=== PATIENT | male | born 1945 | race Caucasian/White ===

== ENCOUNTER 2017-02-25 22:39 | Inpatient (IN) | payer OTHER ==
[~2017-02-25] VITALS: Ht 175.3 cm; Wt 53.5 kg
--- NOTE | 2017-02-25 23:02 | EMERGENCY ROOM VISIT NOTE ---
History Report prepared by Dariaibe: Connor Darby Under the Supervision of: Dr. Edward Dean D.O. First contact with patient: 22:49 Chief Complaint: UNABLE TO VOID Stated Complaint: UNABLE TO VOID / FR [facility] Nursing Triage Summary: Pt arrives to ER via ALS from [facility]. Pt had myers cather in place until this afternoon. Pt has been unable to void. HS attempted to straight cath patient, unsuccessful, got blood clots. Pt sent here for further evaluation. Pt was bladder scanned for 614 ml in ER. History of Present Illness The patient is a 71 year old male who presents to the Emergency Room with complaints of constant urinary retention that started today. The patient resides at [facility], where he had a Myers catheter removed. He has been unable to void since the Myers was removed. They were unable to establish a straight cath at [facility] and they noticed clots. He has a very strong urge to urinate but cannot. Bladder scan upon arrival to the ED revealed 614 mls of fluid per nursing staff. Source of History: patient, nursing staff Onset: today Position: other (urinary) Quality: other (retention) Timing: constant Associated Symptoms: + urinary symptoms (blood clots) Review of Systems See HPI for pertinent positives and negatives. A total of ten systems were reviewed and were otherwise negative. Past Medical & Surgical Medical Problems: (1) HLD (hyperlipidemia) Family History Patient reports no known family medical history. Social History Smoking Status: Current Every Day Smoker Housing Status: other ([facility]) Occupation Status: retired Current/Historical Medications Scheduled Aspirin (Aspirin Chewable), 162 MG PO QAM Atorvastatin (Lipitor), 80 MG PO DAILY Bisacodyl (Bisacodyl), 10 MG RI DAILY/PRN Clopidogrel (Plavix), 75 MG PO QAM Lidocaine HCl (Lidocaine), 1 APPLN TD PRN Magnesium Hydroxide (Milk Of Magnesia), 30 ML PO DAILY/PRN Scheduled PRN Acetaminophen (Tylenol), 500 MG PO Q4H PRN for MILD PAIN #1-3 OR TEMP >101F Docusate Sodium (Docusate Sodium), 100 MG PO BID PRN for Constipation Polyethylene Glycol 3350 (Miralax), 17 GM PO DAILY PRN for DAILY/PRN Allergies Coded Allergies: No Known Allergies (Unverified , 4/30/17) Physical Exam Vital Signs Date Time Temp Pulse Resp B/P Pulse Ox O2 Delivery O2 Flow Rate FiO2 02/26/17 02:09 120 02/26/17 01:59 151/118 02/26/17 01:39 131 16 86 02/26/17 01:30 140/97 02/26/17 01:09 130 94 02/26/17 01:00 135/105 02/26/17 00:39 146 87 02/26/17 00:30 140 20 155/86 95 Room Air 02/26/17 00:30 155/86 02/26/17 00:21 166/108 02/26/17 00:09 126 97 02/25/17 23:40 95 Room Air 02/25/17 23:39 121 93 02/25/17 23:19 82/62 02/25/17 23:13 164/ 02/25/17 23:09 18 02/25/17 22:46 36.5 128 16 125/87 96 Room Air 02/25/17 22:45 125/87 02/25/17 22:43 142 Physical Exam GENERAL: Cachectic, moaning in pain. HENT: Normocephalic, atraumatic. Oropharynx unremarkable. EYES: Normal conjunctiva. Sclera non-icteric. NECK: Supple. No nuchal rigidity. FROM. No JVD. RESPIRATORY: Clear to auscultation. CARDIAC: Tachycardic, normal rhythm. Extremities warm and well perfused. Pulses equal. ABDOMEN: Distended, tender. : Blood at the urethral meatus. MUSCULOSKELETAL: Chest examination reveals no tenderness. The back is symmetrical on inspection without obvious abnormality. There is no CVA tenderness to palpation. No joint edema. LOWER EXTREMITIES: Calves are equal size bilaterally and non-tender. No edema. No discoloration. NEURO: Patient is awake, alert. SKIN: No rash or jaundice noted. Medical Decision & Procedures Laboratory Results 02/25/17 23:35 Red Blood Count 3.84, Mean Corpuscular Volume 88.5, Mean Corpuscular Hemoglobin 29.4, Mean Corpuscular Hemoglobin Concent 33.2, Mean Platelet Volume 8.4, Neutrophils (%) (Auto) 77.4, Lymphocytes (%) (Auto) 9.7, Monocytes (%) (Auto) 11.8, Eosinophils (%) (Auto) 0.3, Basophils (%) (Auto) 0.2, Neutrophils # (Auto ) 9.86, Lymphocytes # (Auto) 1.23, Monocytes # (Auto) 1.50, Eosinophils # (Auto ) 0.04, Basophils # (Auto) 0.03 02/25/17 23:35 Test 02/25/17 23:15 02/25/17 23:35 02/25/17 23:47 Urine Color RED Urine Appearance TURBID (CLEAR) Urine pH 7.5 (4.5-7.5) Urine Specific [place] 1.028 (1.000-1.030) Urine Protein 4+ (NEG) Urine Glucose (UA) TRACE (NEG) Urine Ketones NEG (NEG) Urine Occult Blood 3+ (NEG) Urine Nitrite NEG (NEG) Urine Bilirubin NEG (NEG) Urine Urobilinogen NEG (NEG) Urine Leukocyte Esterase TRACE (NEG) Urine WBC (Auto) 5-10 /hpf (0-5) Urine RBC (Auto) >30 /hpf (0-4) Urine Hyaline Casts (Auto) 1-5 /lpf (0-5) Urine Epithelial Cells (Auto) 0-5 /lpf (0-5) Urine Bacteria (Auto) NEG (NEG) White Blood Count 12.74 K/uL (4.8-10.8) Red Blood Count 3.84 M/uL (4.7-6.1) Hemoglobin 11.3 g/dL (14.0-18.0) Hematocrit 34.0 % (42-52) Mean Corpuscular Volume 88.5 fL (80-100) Mean Corpuscular Hemoglobin 29.4 pg (25-34) Mean Corpuscular Hemoglobin Concent 33.2 g/dl (32-36) Platelet Count 309 K/uL (130-400) Mean Platelet Volume 8.4 fL (7.4-10.4) Neutrophils (%) (Auto) 77.4 % Lymphocytes (%) (Auto) 9.7 % Monocytes (%) (Auto) 11.8 % Eosinophils (%) (Auto) 0.3 % Basophils (%) (Auto) 0.2 % Neutrophils # (Auto) 9.86 K/uL (1.4-6.5) Lymphocytes # (Auto) 1.23 K/uL (1.2-3.4) Monocytes # (Auto) 1.50 K/uL (0.11-0.59) Eosinophils # (Auto) 0.04 K/uL (0-0.5) Basophils # (Auto) 0.03 K/uL (0-0.2) RDW Standard Deviation 46.9 fL (36.4-46.3) RDW Coefficient of Variation 14.3 % (11.5-14.5) Immature Granulocyte % (Auto) 0.6 % Immature Granulocyte # (Auto) 0.08 K/uL (0.00-0.02) Prothrombin Time 10.8 SECONDS (9.0-12.0) Prothromb Time International Ratio 1.0 (0.9-1.1) Anion Gap 9.0 mmol/L (3-11) Est Creatinine Clear Calc Drug Dose 61.7 ml/min Estimated GFR () 101.4 Estimated GFR (Non- 87.5 BUN/Creatinine Ratio 15.7 (10-20) Calcium Level 8.0 mg/dl (8.5-10.1) Total Bilirubin 0.4 mg/dl (0.2-1) Direct Bilirubin 0.2 mg/dl (0-0.2) Aspartate Amino Transf (AST/SGOT) 17 U/L (15-37) Alanine Aminotransferase (ALT/SGPT) 14 U/L (12-78) Alkaline Phosphatase 133 U/L (45-117) Total Protein 6.5 gm/dl (6.4-8.2) Albumin 2.4 gm/dl (3.4-5.0) Bedside Lactic Acid Venous 1.97 mmol/L (0.90-1.70) Laboratory results reviewed by me Medications Administered Medications (Trade) Dose Ordered Sig/Kayli Route Start Time Stop Time Status Last Admin Dose Admin Ceftriaxone Sodium (Rocephin Inj) 1 gm NOW STAT IV 02/26/17 01:36 02/26/17 01:37 DC 02/26/17 02:14 1 GM Hydromorphone HCl (Dilaudid Inj) 1 mg NOW STAT IV 02/26/17 02:05 02/26/17 02:06 DC 02/26/17 02:15 1 MG ED Course 2254: The patient was evaluated in room B11b. A complete history and physical exam was performed. 2300: Myers catheter being placed by nursing staff. 2320: Myers catheter drained bright red blood. 0125: Reassessed the patient. He is still in a lot of pain. 0134: Morphine Sulfate 4 mg IV. 0136: Rocephin 1 gm IV. 0205: Dilaudid 1 mg IV. 0225: Discussed the case with Dr. Rae, [facility] Hospitalist. The patient will be evaluated. Medical Decision Differential diagnosis includes urinary retention, hematuria, bladder obstruction, UTI. Patient started on IV fluids IV pain medicine IV antibiotics in the 3-way Myers catheter with continuous bladder irrigation. Case was discussed with the hospitalist at 2:30 for admission Consults Time Called: [phone] Consulting Physician: Dr. Rae, [facility] Hospitalist Returned Call: [phone] The patient will be evaluated. Impression Primary Impression: Hematuria Additional Impressions: UTI (urinary tract infection) Urinary retention Scribe Attestation The scribe's documentation has been prepared under my direction and personally reviewed by me in its entirety. I confirm that the note above accurately reflects all work, treatment, procedures, and medical decision making performed by me. Departure Information Dispostion Being Evaluated By Hospitalist Referrals No Doctor, Assigned (PCP) Patient Instructions My [facility] Problem Qualifiers Additional Impressions: UTI (urinary tract infection) Urinary tract infection type: site unspecified Hematuria presence: with hematuria Qualified Codes: N39.0 - Urinary tract infection, site not specified ; R31.9 - Hematuria, unspecified
[2017-02-25 23:44] LABS: URINE BILIRUBIN NEG (NEG); URINE EPITHELIAL CELL AUTO 0-5 /lpf (0-5); URINE NITRITE NEG (NEG); URINE PH 7.5 (4.5-7.5); URINE SPECIFIC GRAVITY 1.028 (1.000-1.030); UROBILINOGEN NEG (NEG)
[2017-02-25 23:46] LABS: SULFASALICYLIC ACID POS (NEG); URINE APPEARANCE TURBID (CLEAR); URINE COLOR RED
[2017-02-25 23:47] LABS: MANUAL MICROSCOPIC REQUIRED? NO; REVIEW REQ? NO
[2017-02-26] VITALS (12 sets, daily range): BP systolic 81–175; BP diastolic 41–96; PULSE 81–105; TEMP 36.1–36.7; O2SAT 94–98; Ht 175.3 cm; Wt 53.5 kg
[2017-02-26 00:03] LABS: BASO % 0.2 %; BASO ABS # 0.03 K/uL (0-0.2); COMPLETE YES; EOS % 0.3 %; IG% 0.6 %; LYMPH % 9.7 %; LYMPH ABS # 1.23 K/uL (1.2-3.4); MEAN CELL VOLUME 88.5 fL (80-100); MEAN CORPUSCULAR HEMOGLOBIN 29.4 pg (25-34); MEAN CORPUSCULAR HGB CONC 33.2 g/dl (32-36); MEAN PLATELET VOLUME 8.4 fL (7.4-10.4); MONO % 11.8 %; NEUT % 77.4 %; PLATELET COUNT 309 K/uL (130-400); RED BLOOD COUNT 3.84 M/uL (4.7-6.1); WHITE BLOOD COUNT 12.74 K/uL (4.8-10.8)
[2017-02-26 00:14] LABS: PROTHROMBIN TIME (PATIENT) 10.8 SECONDS (9.0-12.0)
[2017-02-26] MEDS ORDERED: ACET-1256 PO (00:14)
[2017-02-26] MEDS ORDERED: BISA10SU5 PR (00:16)
[2017-02-26] MEDS ORDERED: DOCU100C31 PO (00:20)
[2017-02-26] MEDS ORDERED: MOML PO (00:22)
[2017-02-26] MEDS ORDERED: POLY335019 PO (00:23)
[2017-02-26 00:26] LABS: BUN/CREATININE RATIO 15.7 (10-20); CREATININE 0.84 mg/dl (0.60-1.40)
[2017-02-26] MEDS ORDERED: XYLO/5 TD (00:28)
[2017-02-26] MEDS ORDERED: ASPCH81X PO (00:30)
[2017-02-26] MEDS ORDERED: ATOR-24 PO (00:31)
[2017-02-26] MEDS ORDERED: CLOP1TAB15 PO (00:32)
[2017-02-26] MEDS ORDERED: MoRPHine SULFATE 4 MG/ML 1 ML CARP\\VIAL IV STA (01:34)
[2017-02-26] MEDS ORDERED: CEFTRIAXONE SOD INJ 1 GM ADDVIAL IV STA (01:36)
[2017-02-26] MEDS ORDERED: HYDROmorphone INJ 1 MG/ML SYR IV STA (02:05)
[2017-02-26] MEDS ORDERED: LIDOCAINE 2% JELLY 5 ML TUBE EXT PRN (02:45)
[2017-02-26] MEDS ORDERED: DOCUSATE SODIUM 100 MG CAP PO PRN (02:45)
[2017-02-26] MEDS ORDERED: MAGNESIUM HYDROXIDE SUSP 30 ML UDC PO PRN (02:45)
[2017-02-26] MEDS ORDERED: BISACODYL 10 MG SUPP PR PRN (02:45)
[2017-02-26] MEDS ORDERED: OXYCODONE/ACETAMINOPHEN 10/325MG TAB PO PRN (02:45)
[2017-02-26] MEDS ORDERED: ACETAMINOPHEN 325 MG TAB PO PRN (02:45)
[2017-02-26] MEDS ORDERED: ALUMINUM/MAGNESIUM/SIMETH (MAALOX MAX) 30 ML UDC PO PRN (02:45)
[2017-02-26] MEDS ORDERED: ONDANSETRON INJ 2 MG/ML 2 ML VIAL IV PRN (02:45)
[2017-02-26] MEDS ORDERED: POLYETHYLENE (MIRALAX) 17 GM PACK PO PRN (02:45)
[2017-02-26] MEDS ORDERED: ZOLPIDEM TARTRATE 5 MG TAB PO PRN (02:45)
--- NOTE | 2017-02-26 03:28 | History and Physical ---
History & Physical Date & Time of Service: Feb 26, 2017 at 02:41 Chief Complaint: Unable To Void / Fr [facility] Primary Care Physician: Hair Gardner History of Present Illness Source: patient, hospital records 71 y/o M recent CVA admitted to [facility] 02/22 with L hemiparesis. Pt is recovering at [facility] following discharge. He had urinary retention when hospitalized and was discharged with a catheter. The catheter was removed earlier in the day. He developed bladder distention and severe related pain and was sent to the ER for evaluation. A bladder scan on arrival reveled approximately 700cc. The pt was catheterized and was noted to have a large blood clot in the meatus. There was copious hematuria following catheterization , the catheter was then changed to a [address] way and CBI initiated. The pt prior to admission to [facility] for a CVA had not seen a physician in 25 years. He was not taking any medications until then and was a half pack per day smoker. He was placed on Plavix and ASA following DC. He denies a history of hematuria prior. He denies a fever or rigors and his UA is negative. He does have mild leukocytosis and mild lactic elevation on admission without evidence of acute infection. The pts L hemiparesis has improved although he remains significantly weak on the L. He has some word finding difficulty although his comprehension is intact and he is able to tolerate a full diet. Past Medical/Surgical History Medical Problems: (1) HLD (hyperlipidemia) Status: Chronic Family History Patient reports no known family medical history. Father from [place] - did not know what kind - had abdominal surgery 6 weeks prior to passing Mother :just wore out" - advanced age Social History Smoked 1/2 pack per day for > 40 years. Drinks 3-4 beers each evening - retired form factory and farm labor. Smoking Status: Current Every Day Smoker Occupational Status: retired Allergies Coded Allergies: No Known Allergies (Unverified , 02/26/17) Home Medications Scheduled Aspirin (Aspirin Chewable), 162 MG PO QAM Atorvastatin (Lipitor), 80 MG PO DAILY Bisacodyl (Bisacodyl), 10 MG LA DAILY/PRN Clopidogrel (Plavix), 75 MG PO QAM Lidocaine HCl (Lidocaine), 1 APPLN TD PRN Magnesium Hydroxide (Milk Of Magnesia), 30 ML PO DAILY/PRN Scheduled PRN Acetaminophen (Tylenol), 500 MG PO Q4H PRN for MILD PAIN #1-3 OR TEMP >101F Docusate Sodium (Docusate Sodium), 100 MG PO BID PRN for Constipation Polyethylene Glycol 3350 (Miralax), 17 GM PO DAILY PRN for DAILY/PRN Review of Systems Constitutional: No chills, No fever, No sweats Eyes: No eye pain, No worsening of vision ENT: No hearing loss, No nasal symptoms, No unusual epistaxis Respiratory: No cough, No sputum, No wheezing Cardiovascular: No PND, No chest pain, No orthopnea Abdomen: No nausea, No pain, No vomiting Musculoskeletal: No joint pain, No muscle pain Genitourinary - Male: + dysuria, + hematuria, + urinary retention Neurologic: + balance problems, + weakness, No memory loss Psychiatric: No depression symptoms Endocrine: No fatigue Hematologic / Lymphatic: + abnormal bleeding/bruising Integumentary: No rash Allergic / Immunologic: No environmental allergies Physical Exam Vital Signs Date Time Temp Pulse Resp B/P Pulse Ox O2 Delivery O2 Flow Rate FiO2 02/26/17 02:09 120 02/26/17 01:59 151/118 02/26/17 01:39 131 16 86 02/26/17 01:30 140/97 02/26/17 01:09 130 94 02/26/17 01:00 135/105 02/26/17 00:39 146 87 02/26/17 00:30 140 20 155/86 95 Room Air 02/26/17 00:30 155/86 02/26/17 00:21 166/108 02/26/17 00:09 126 97 02/25/17 23:40 95 Room Air 02/25/17 23:39 121 93 02/25/17 23:19 82/62 02/25/17 23:13 164/ 02/25/17 23:09 18 02/25/17 22:46 36.5 128 16 125/87 96 Room Air 02/25/17 22:45 125/87 02/25/17 22:43 142 General Appearance: + pertinent finding (Very thin, pleasant elderly male in no acute distress) Head: + pertinent finding (Bruising - L lat periorbital - facial asymetry present with L weakness) Eyes: normal inspection, PERRL, EOMI ENT: normal ENT inspection, pharynx normal Neck: supple, no adenopathy, no JVD, no carotid bruits Respiratory/Chest: chest non-tender, lungs clear, normal breath sounds, no respiratory distress, no accessory muscle use Cardiovascular: no gallop, no JVD, no murmur, + tachycardia Abdomen/GI: normal bowel sounds, non tender, soft Genitourinary - Male: + pertinent finding (rank hematuria present in [place]) Back: normal inspection, no CVA tenderness Extremities/Musculoskelatal: normal inspection, no calf tenderness, normal capillary refill, no pedal edema, normal range of motion Neurologic/Psych: oriented x 3, + facial droop, + motor weakness, + pertinent finding (impaired word finding - comprehension intact - L facial droop - significant strength and sensory imparment of L extremities) Skin: normal color, + pertinent finding (L periorbital bruising as above ) Diagnostics Laboratory Results Results Past 24 Hours Test 02/25/17 23:15 02/25/17 23:35 02/25/17 23:47 Range/Units Urine Color RED Urine Appearance TURBID CLEAR Urine pH 7.5 4.5-7.5 Urine Specific [place] 1.028 1.000-1.030 Urine Protein 4+ NEG Urine Glucose (UA) TRACE NEG Urine Ketones NEG NEG Urine Occult Blood 3+ NEG Urine Nitrite NEG NEG Urine Bilirubin NEG NEG Urine Urobilinogen NEG NEG Urine Leukocyte Esterase TRACE NEG Urine WBC (Auto) 5-10 0-5 /hpf Urine RBC (Auto) >30 0-4 /hpf Urine Hyaline Casts (Auto) 1-5 0-5 /lpf Urine Epithelial Cells (Auto) 0-5 0-5 /lpf Urine Bacteria (Auto) NEG NEG White Blood Count 12.74 4.8-10.8 K/uL Red Blood Count 3.84 4.7-6.1 M/uL Hemoglobin 11.3 14.0-18.0 g/dL Hematocrit 34.0 42-52 % Mean Corpuscular Volume 88.5 80-100 fL Mean Corpuscular Hemoglobin 29.4 25-34 pg Mean Corpuscular Hemoglobin Concent 33.2 32-36 g/dl Platelet Count 309 130-400 K/uL Mean Platelet Volume 8.4 7.4-10.4 fL Neutrophils (%) (Auto) 77.4 % Lymphocytes (%) (Auto) 9.7 % Monocytes (%) (Auto) 11.8 % Eosinophils (%) (Auto) 0.3 % Basophils (%) (Auto) 0.2 % Neutrophils # (Auto) 9.86 1.4-6.5 K/uL Lymphocytes # (Auto) 1.23 1.2-3.4 K/uL Monocytes # (Auto) 1.50 0.11-0.59 K/uL Eosinophils # (Auto) 0.04 0-0.5 K/uL Basophils # (Auto) 0.03 0-0.2 K/uL RDW Standard Deviation 46.9 36.4-46.3 fL RDW Coefficient of Variation 14.3 11.5-14.5 % Immature Granulocyte % (Auto) 0.6 % Immature Granulocyte # (Auto) 0.08 0.00-0.02 K/uL Prothrombin Time 10.8 9.0-12.0 SECONDS Prothromb Time International Ratio 1.0 0.9-1.1 Sodium Level 138 136-145 mmol/L Potassium Level 4.0 3.5-5.1 mmol/L Chloride Level 103 98-107 mmol/L Carbon Dioxide Level 26 21-32 mmol/L Anion Gap 9.0 3-11 mmol/L Blood Urea Nitrogen 13 7-18 mg/dl Creatinine 0.84 0.60-1.40 mg/dl Est Creatinine Clear Calc Drug Dose 61.7 ml/min Estimated GFR () 101.4 Estimated GFR (Non- 87.5 BUN/Creatinine Ratio 15.7 10-20 Random Glucose 163 70-99 mg/dl Calcium Level 8.0 8.5-10.1 mg/dl Total Bilirubin 0.4 0.2-1 mg/dl Direct Bilirubin 0.2 0-0.2 mg/dl Aspartate Amino Transf (AST/SGOT) 17 15-37 U/L Alanine Aminotransferase (ALT/SGPT) 14 12-78 U/L Alkaline Phosphatase 133 45-117 U/L Total Protein 6.5 6.4-8.2 gm/dl Albumin 2.4 3.4-5.0 gm/dl Bedside Lactic Acid Venous 1.97 0.90-1.70 mmol/L Microbiology Results 02/25/17 Blood Culture, Received Pending 02/25/17 Blood Culture, Received Pending Impression Assessment and Plan 71 y/o M recent CVA admitted to [facility] 02/22 with L hemiparesis. Pt is recovering at [facility] following discharge. He had urinary retention when hospitalized and was discharged with a catheter. The catheter was removed earlier in the day. He developed bladder distention and severe related pain and was sent to the ER for evaluation. A bladder scan on arrival reveled approximately 700cc. The pt was catheterized and was noted to have a large blood clot in the meatus. There was copious hematuria following catheterization , the catheter was then changed to a [address] and CBI initiated. The pt prior to admission to [facility] for a CVA had not seen a physician in 25 years. He was not taking any medications until then and was a half pack per day smoker. He was placed on Plavix and ASA following DC. He denies a history of hematuria prior. He denies a fever or rigors and his UA is negative for infection. He does have mild leukocytosis and mild lactic elevation on admission without evidence of acute infection. He is tachycardic on admission which may be pain related. 1) Urinary retention and hematuria - Pt may have suffered trauma during catheter removal, as per the ER there was a clot at the meatus during initial catheterization. However, he exhibited retention without hematuria during his recent hospitalization. He was prescribed Plavix and ASA which would would potentiate hematuria if there was an underlying lesion. Given his history of smoking and poor medical follow-up an inpt cystoscopy may be merited regardless of weather his hematuria clears up in the short term. CBI is initiated and urology is consulted. We will trend his CBC. 2) Elevated lactic acid, leukocytosis - no clear evidence of infection - may be associated with dehydration - we will provide aggressive hydration and have a low threshold for initiation of antibiotics. 3) CVA - The pts L hemiparesis has improved although he remains significantly weak on the L. He has some word finding difficulty although his comprehension is intact and he is able to tolerate a full diet. We have held his ASA and Plavix until his hematuria resolves. These should be restarted at the earliest possible time. He should return to rehab when D/Cd and would benefit from inpt PT if his stay is extended. He will remain on Atorvastatin. 4) Tachycardia , stable BP - IVF - monitor and treat pain - consider further workup if does not resolve. 5) Advised previously on smoking cessation Full code - SCDs Total time for this admit including review of labs, meds, EKG, outpatient records from [facility] - discussion with pt and ER attending - 40 min Level of Care Med/Surg Resuscitation Status FULL RESUSCITATION VTE Prophylaxis VTE Risk Assessment Done? Y/N: Yes Risk Level: Moderate Given or contraindicated: SCD's
[2017-02-26] MEDS ORDERED: SODIUM CHLORIDE 0.9% 500ML 500 ML IV SCH (03:30)
[2017-02-26] MEDS: SODIUM CHLORIDE 0.9% 1000ML 1,000 ML IV SCH ×3 (05:06→21:17)
[2017-02-26] MEDS ORDERED: PNEUMOCOCCAL ADMINISTRATION CHARGE ONE (05:45)
[2017-02-26] MEDS ORDERED: PNEUMOCOCCAL POLYSACCHARIDES 25 MCG/0.5 ML VIAL/SYR IM. ONE (05:45)
[2017-02-26 06:59] LABS: HEMATOCRIT 28.3 % (42-52); MEAN CELL VOLUME 88.4 fL (80-100); MEAN CORPUSCULAR HEMOGLOBIN 29.1 pg (25-34); MEAN CORPUSCULAR HGB CONC 32.9 g/dl (32-36); MEAN PLATELET VOLUME 8.1 fL (7.4-10.4); PLATELET COUNT 291 K/uL (130-400); WHITE BLOOD COUNT 11.65 K/uL (4.8-10.8)
[2017-02-26 07:38] LABS: BUN/CREATININE RATIO 16.2 (10-20); CALCIUM 7.8 mg/dl (8.5-10.1); CREATININE 0.86 mg/dl (0.60-1.40); MAGNESIUM 1.9 mg/dl (1.8-2.4); POTASSIUM 4.3 mmol/L (3.5-5.1)
[2017-02-26] MEDS: ATORVASTATIN 40 MG TAB PO SCH (07:38)
[2017-02-26] MEDS ORDERED: MAGNESIUM HYDROXIDE SUSP 30 ML UDC PO SCH (08:00)
--- NOTE | 2017-02-26 09:38 | Hospitalist Progress Note ---
Hospitalist Progress Note Date of Service Feb 26, 2017. (Anna Rice, BUBBA) Subjective Pt evaluation today including: conversation w/ patient, physical exam, chart review, lab review, review of studies, review of inpatient medication list Voiding: myers catheter in place Patient seen and evaluated. Admitted from [facility] due to bladder distention and pain after a Myers catheter removed from previous urinary retention. Patient now experiencing gross hematuria. Patient denies pain however reports discomfort that waxes and wanes and states it feels that he needs to urinate however feels like he cannot. Full catheter does not appear clotted off but continues to have gross hematuria. He denies fevers or chills. No CVA tenderness or suprapubic tenderness. Patient is currently undergoing continuous bladder irrigation. REASSESSMENT: Patient reevaluated due to hemoglobin dropping from 9.3 down to 8.3. Patient with labile blood pressures normally normotensive intermittently hypotensive. No longer tachycardic however heart rates remained in the 90s. He denies chest pain, shortness of breath, increased generalized weakness. Patient is largely cachectic and mildly pale. Patient is mentating appropriately and left-sided residual deficits are at his current baseline. Given his recent CVA continue to monitor for neurological deficits however bleeding likely related to hematuria and not a concern for hemorrhagic conversion. Continues to have waxing and waning bladder spasms and passing small clots that are present in the Myers bag. Myers bag with significant gross hematuria. Patient was consented for transfusion. After consent, new set of vitals revealed hypotension and will transfuse at this time. At this time we will hold ASA therapy due to gross hematuria and need for cystoscopy tomorrow. Again continue monitoring for neurological deficits however suspicion for hemorrhagic conversion of recent CVA is unlikely. Additional Comments: REVIEW OF SYSTEMS: General/Constitutional: Denies fever/chills, fatigue, weakness ENT: Denies visual changes, nasal drainage, hearing loss, sore throat, trouble swallowing Cardiovascular: Denies chest pain, palpitations, edema Respiratory: Denies cough, sputum, SOB, wheezing, orthopnea GI: Denies nausea, vomiting, abdominal pain, constipation, diarrhea, melena/ hematochezia : + "urge to void" (wax and wanes), +gross hematuria Musculoskeletal: Denies joint/muscle aches, swelling Neurologic: +L sided weakness (recent CVA); Denies dizziness/lightheadedness, numbness/tingling Psychiatric: Deferred Endocrine: Deferred Hematologic/Lymphatic: Denies bleeding/clotting abnormalities except for hematuria Skin: Denies rash, itch, new skin changes, easy bruising Allergy/Immunologic: Deferred (Anna Rice, BUBBA) Medications Current Inpatient Medications Medications (Trade) Dose Ordered Sig/Kayli Route Start Time Stop Time Status Last Admin Dose Admin Atorvastatin Calcium (Lipitor Tab) 80 mg DAILY PO 02/26/17 08:00 03/28/17 08:59 02/26/17 07:38 80 MG Bisacodyl (Dulcolax Supp) 10 mg DAILY PRN [place] 02/26/17 02:45 03/28/17 02:44 Docusate Sodium (coLACE CAP) 100 mg BID PRN PO 02/26/17 02:45 03/28/17 02:44 Lidocaine HCl (Xylocaine Jelly 2%) 1 ml PRN PRN EXT 02/26/17 02:45 03/28/17 02:44 Acetaminophen (Tylenol Tab) 650 mg Q4H PRN PO 02/26/17 02:45 03/28/17 02:44 Al Hydrox/Mg Hydrox/Simethicone (Maalox Max Susp) 15 ml Q4H PRN PO 02/26/17 02:45 03/28/17 02:44 Magnesium Hydroxide (Milk Of Magnesia Susp) 30 ml Q6H PRN PO 02/26/17 02:45 03/28/17 02:44 Polyethylene (Miralax Powder Packet) 17 gm DAILY PRN PO 02/26/17 02:45 03/28/17 02:44 Zolpidem Tartrate (Ambien Tab) 5 mg HSZ PRN PO 02/26/17 02:45 03/28/17 02:44 Ondansetron HCl (Zofran Inj) 4 mg Q6H PRN IV 02/26/17 02:45 03/28/17 02:44 Hydromorphone HCl (Dilaudid Inj) 0.5 mg Q3H PRN IV 02/26/17 02:45 03/12/17 02:44 Oxycodone/ Acetaminophen 1 tab 1 tab Q4H PRN PO 02/26/17 02:45 03/12/17 02:44 Sodium Chloride (Nss 1000ml) 1,000 ml @ 150 mls/hr Q6H40M IV 02/26/17 04:00 03/28/17 03:59 02/26/17 07:38 150 MLS/HR (Anna Rice PA-C) Objective Vital Signs Date Time Temp Pulse Resp B/P Pulse Ox O2 Delivery O2 Flow Rate FiO2 02/26/17 04:33 36.4 98 18 118/75 98 Room Air 02/26/17 03:00 121/68 02/26/17 02:44 98 98 02/26/17 02:30 94/66 02/26/17 02:14 128 27 02/26/17 02:09 120 02/26/17 01:59 151/118 02/26/17 01:39 131 16 86 02/26/17 01:30 140/97 02/26/17 01:09 130 94 02/26/17 01:00 135/105 02/26/17 00:39 146 87 02/26/17 00:30 140 20 155/86 95 Room Air 02/26/17 00:30 155/86 02/26/17 00:21 166/108 02/26/17 00:09 126 97 02/25/17 23:40 95 Room Air 02/25/17 23:39 121 93 02/25/17 23:19 82/62 02/25/17 23:13 164/ 02/25/17 23:09 18 02/25/17 22:46 36.5 128 16 125/87 96 Room Air 02/25/17 22:45 125/87 02/25/17 22:43 142 (Anna Rice PA-C) Physical Exam Notes: PHYSICAL EXAM:: General Appearance: Cachectic mildly disheveled who is in NAD who is A&O x 3; HEENT: Head is normocephalic; EOMI; PERRLA; [place] (hears better in R ear); Mucous membranes moist; Pharynx negative for exudate/lesions Neck: Supple; Trachea midline; Neg JVD; Neg lymphadenopathy Heart: RRR with no M/G/R Lungs: CTA in all lung duggan bilaterally but diminished; Respirations unlabored ; Neg accessory muscle use Abdomen: Soft, non-tender, non-distended; Positive BS x 4 quadrants; Neg organomegaly; no appreciated bladder distention; neg CVA tenderness Extremities: Capillary refill < 2 seconds; Neg cyanosis or edema Neurological: Speech clear; L residual weakness 2/2 CVA (reporting as current baseline) Psychiatric: Appropriate mood/affect Skin: Normal Color; Warm/Dry; Neg rashes, multiple tattoos (Anna Rice, BUBBA) Laboratory Results Last 24 Hours Test 02/25/17 23:15 02/25/17 23:35 02/25/17 23:47 02/26/17 06:41 Urine Color RED Urine Appearance TURBID Urine pH 7.5 Urine Specific [place] 1.028 Urine Protein 4+ Urine Glucose (UA) TRACE Urine Ketones NEG Urine Occult Blood 3+ Urine Nitrite NEG Urine Bilirubin NEG Urine Urobilinogen NEG Urine Leukocyte Esterase TRACE Urine WBC (Auto) 5-10 /hpf Urine RBC (Auto) >30 /hpf Urine Hyaline Casts (Auto) 1-5 /lpf Urine Epithelial Cells (Auto) 0-5 /lpf Urine Bacteria (Auto) NEG White Blood Count 12.74 K/uL 11.65 K/uL Red Blood Count 3.84 M/uL 3.20 M/uL Hemoglobin 11.3 g/dL 9.3 g/dL Hematocrit 34.0 % 28.3 % Mean Corpuscular Volume 88.5 fL 88.4 fL Mean Corpuscular Hemoglobin 29.4 pg 29.1 pg Mean Corpuscular Hemoglobin Concent 33.2 g/dl 32.9 g/dl Platelet Count 309 K/uL 291 K/uL Mean Platelet Volume 8.4 fL 8.1 fL Neutrophils (%) (Auto) 77.4 % Lymphocytes (%) (Auto) 9.7 % Monocytes (%) (Auto) 11.8 % Eosinophils (%) (Auto) 0.3 % Basophils (%) (Auto) 0.2 % Neutrophils # (Auto) 9.86 K/uL Lymphocytes # (Auto) 1.23 K/uL Monocytes # (Auto) 1.50 K/uL Eosinophils # (Auto) 0.04 K/uL Basophils # (Auto) 0.03 K/uL RDW Standard Deviation 46.9 fL 46.4 fL RDW Coefficient of Variation 14.3 % 14.2 % Immature Granulocyte % (Auto) 0.6 % Immature Granulocyte # (Auto) 0.08 K/uL Prothrombin Time 10.8 SECONDS Prothromb Time International Ratio 1.0 Sodium Level 138 mmol/L 140 mmol/L Potassium Level 4.0 mmol/L 4.3 mmol/L Chloride Level 103 mmol/L 106 mmol/L Carbon Dioxide Level 26 mmol/L 22 mmol/L Anion Gap 9.0 mmol/L 12.0 mmol/L Blood Urea Nitrogen 13 mg/dl 14 mg/dl Creatinine 0.84 mg/dl 0.86 mg/dl Est Creatinine Clear Calc Drug Dose 61.7 ml/min 58.8 ml/min Estimated GFR () 101.4 100.4 Estimated GFR (Non- 87.5 86.6 BUN/Creatinine Ratio 15.7 16.2 Random Glucose 163 mg/dl 137 mg/dl Calcium Level 8.0 mg/dl 7.8 mg/dl Total Bilirubin 0.4 mg/dl Direct Bilirubin 0.2 mg/dl Aspartate Amino Transf (AST/SGOT) 17 U/L Alanine Aminotransferase (ALT/SGPT) 14 U/L Alkaline Phosphatase 133 U/L Total Protein 6.5 gm/dl Albumin 2.4 gm/dl Bedside Lactic Acid Venous 1.97 mmol/L Lactic Acid Level 2.4 mmol/L Magnesium Level 1.9 mg/dl (Anna Rice, BUBBA) Assessment and Plan 71 y/o male with recent CVA admitted to [facility] 02/22 with L hemiparesis. Pt is recovering at [facility] emergency room following discharge. He had urinary retention when hospitalized and was discharged with a catheter. The catheter was removed earlier in the day. He developed bladder distention and pain and was sent to the ER for evaluation. A bladder scan on arrival reveled approximately 700cc. The pt was catheterized and was noted to have a large blood clot in the meatus. There was copious hematuria following catheterization, the catheter was then changed to a [address] way and CBI initiated. Urinary Retention and Gross Hematuria (Likely Traumatic): - Hold Plavix but will restart ASA given recent CVA and high risk for reoccurrence - Continue CBI - Given elevated lactic acid and remaining leukocytosis - will continue Ceftriaxone 1 g daily - Obtain UA and Cx regardless - likely altered due to already receiving dose of Abx - Urology consulted - appreciate recommendations - inpatient cystoscopy -- Patient without PCP x 25 years Tachycardia: Likely Pain Response - Obtain EKG - evidence of diffuse mild ST elevation without CP/SOB likely early repolarization instead of pericarditis - Discussed findings with Dr. Silva - Obtain troponin and monitor Leukocytosis: - CXR - image and report reviewed - question of PNA vs overlying soft tissue - on Ceftriaxone for urinary symptoms - continue to monitor for need to broaden Abx Anemia: - Hgb from 11 to 9.3 - likely concentration and hematuria - Repeat H&H - other then tachycardia - no CP, SOB, hypotension - upon reassessment intermittent hypotension - Transfuse PRBC now - consent obtained Recent CVA with L Hemiparesis and Mild Word Finding Difficulty: - Given recent CVA will continue ASA 81 mg daily even in setting of hematuria and hold Plavix - Will monitor BP which has been labile and will not correct at this time given recent CVA - Atorvastatin 80 mg daily - Perform neuro checks Q4H - recent CVA on 02/22 - left residual deficits at baseline and patient is mentating appropriately - continue to monitor for concern of other source of bleeding and risk of hemorrhagic conversion DVT Prophylaxis: ALBARO/SCDs Code Status: FULL RESUSCITATION Disposition: - Return to [facility] for rehab 2/2 CVA - will need PCP established and patient in agreement - will place inpatient PT/OT evaluations - No PCP x 25 years - concern for underlying co-morbidities given cachectic appearance Continued [facility] stay due to: multiple IV medications needed Discharge planning: rehab hospital (Anna Rice PA-C) Reviewed: Pt Seen/Exam by Me (Griselda Hernandez MD) History Physician Mattress Inspector Supervision Note: I interviewed and examined the patient. Discussed with NOAH Rice and agree with findings and plan as documented in the note. Any exceptions or clarifications are listed here: Patient had hemoglobin dropped to 8.3 with continued gross hematuria and a blood pressure of 80s over 40s. Decided to hold aspirin and transfuse 2 units of blood. Continues to have bladder spasms and urology started him on oxybutynin which he has not received yet. Vitals reviewed, ECGs reviewed, old records from outside facility from recent hospitalization for stroke reviewed Mild distress and moaning with pain when has bladder spasms, otherwise no acute distress, appears much older than stated age and chronically ill, cachectic Mildly tachycardic with regular rhythm, no murmurs gallops or rubs Scattered expiratory rhonchi and wheezes, otherwise clear Abdomen positive bowel sounds soft, mildly tender in the suprapubic region, no hepatosplenomegaly or masses Extremities no edema Neuro-3 out of 5 strength throughout the left side of his body with some left rafi-neglect, right upper extremity and right lower extremity with 5 out of 5 strength throughout 71-year-old male with 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 -Transfused 2 units PRBCs -Hold aspirin and watch for recurrent CVA -Appreciate urology evaluation and management-plan for possible cystoscopy tomorrow, continue CBI, started oxybutynin for bladder spasms, finasteride for enlarged prostate seen on CT and for LUTS -For labile blood pressure, will continue to monitor and allow some hypertension given recent ischemic stroke -Will need caught up on preventative care upon discharge and arrangements to be made to set him up with a primary care physician Documented By: Griselda Hernandez (Griselda Hernandez MD)
[2017-02-26] MEDS ORDERED: ASPIRIN 81 MG ECTAB PO ONE (11:00)
[2017-02-26] MEDS ORDERED: OPTIRAY 320 IV PRN (11:15)
--- NOTE | 2017-02-26 11:21 | Urology Consultation ---
History General Date of Service: Feb 26, 2017. Chief Complaint: Gross hematuria Primary Care Physician: Olena Blackman. Pt seen a urologist before?: No History of Present Illness 71 yo male admitted with gross hematuria and urinary retention. Earlier this month he suffered from a CVA from which he is recovering decently, treated at an outside facility. He was placed on antiplatelet agents and was in a rehab facility to assist with his recovery. Due to issues with his voiding a myers was placed and subsequently he developed gross hematuria. He is currently on slow CBI with few clots, some spasms and dark red urine. He denies previous gross hematuria, does not a history of nocturia and frequency, sometimes both pronounced. He denies a slow stream, dribbling urine, episodes of retention or bother. Urology is consulted to assist with his care. Patient's history is notable for a distinct absence of medical care. His last contact with the medical system [facility] [place], [place] where he underwent a cholecystectomy. Before that, he reports his last physical was in [employer] while serving. His inpatient chart is reviewed. Cr wnl, Hb has dropped since admission, but it is not clear if this is dilutional in effect. HPI - Hematuria Hematuria: gross Associated Symptoms: nocturia, retention Duration: since myers placed History of UTI: none History of Stone: none History of Cystoscopy: none Additional Comments: heavy tobacco use Laboratory Last 24 Hours Test 02/25/17 23:15 02/25/17 23:35 02/25/17 23:47 02/26/17 06:41 Urine Color RED Urine Appearance TURBID Urine pH 7.5 Urine Specific [place] 1.028 Urine Protein 4+ Urine Glucose (UA) TRACE Urine Ketones NEG Urine Occult Blood 3+ Urine Nitrite NEG Urine Bilirubin NEG Urine Urobilinogen NEG Urine Leukocyte Esterase TRACE Urine WBC (Auto) 5-10 /hpf Urine RBC (Auto) >30 /hpf Urine Hyaline Casts (Auto) 1-5 /lpf Urine Epithelial Cells (Auto) 0-5 /lpf Urine Bacteria (Auto) NEG White Blood Count 12.74 K/uL 11.65 K/uL Red Blood Count 3.84 M/uL 3.20 M/uL Hemoglobin 11.3 g/dL 9.3 g/dL Hematocrit 34.0 % 28.3 % Mean Corpuscular Volume 88.5 fL 88.4 fL Mean Corpuscular Hemoglobin 29.4 pg 29.1 pg Mean Corpuscular Hemoglobin Concent 33.2 g/dl 32.9 g/dl Platelet Count 309 K/uL 291 K/uL Mean Platelet Volume 8.4 fL 8.1 fL Neutrophils (%) (Auto) 77.4 % Lymphocytes (%) (Auto) 9.7 % Monocytes (%) (Auto) 11.8 % Eosinophils (%) (Auto) 0.3 % Basophils (%) (Auto) 0.2 % Neutrophils # (Auto) 9.86 K/uL Lymphocytes # (Auto) 1.23 K/uL Monocytes # (Auto) 1.50 K/uL Eosinophils # (Auto) 0.04 K/uL Basophils # (Auto) 0.03 K/uL RDW Standard Deviation 46.9 fL 46.4 fL RDW Coefficient of Variation 14.3 % 14.2 % Immature Granulocyte % (Auto) 0.6 % Immature Granulocyte # (Auto) 0.08 K/uL Prothrombin Time 10.8 SECONDS Prothromb Time International Ratio 1.0 Sodium Level 138 mmol/L 140 mmol/L Potassium Level 4.0 mmol/L 4.3 mmol/L Chloride Level 103 mmol/L 106 mmol/L Carbon Dioxide Level 26 mmol/L 22 mmol/L Anion Gap 9.0 mmol/L 12.0 mmol/L Blood Urea Nitrogen 13 mg/dl 14 mg/dl Creatinine 0.84 mg/dl 0.86 mg/dl Est Creatinine Clear Calc Drug Dose 61.7 ml/min 58.8 ml/min Estimated GFR () 101.4 100.4 Estimated GFR (Non- 87.5 86.6 BUN/Creatinine Ratio 15.7 16.2 Random Glucose 163 mg/dl 137 mg/dl Calcium Level 8.0 mg/dl 7.8 mg/dl Total Bilirubin 0.4 mg/dl Direct Bilirubin 0.2 mg/dl Aspartate Amino Transf (AST/SGOT) 17 U/L Alanine Aminotransferase (ALT/SGPT) 14 U/L Alkaline Phosphatase 133 U/L Total Protein 6.5 gm/dl Albumin 2.4 gm/dl Bedside Lactic Acid Venous 1.97 mmol/L Lactic Acid Level 2.4 mmol/L Magnesium Level 1.9 mg/dl Test 02/26/17 10:27 02/26/17 10:57 Problem List Medical Problems: (1) Hematuria Status: Acute (2) Urinary retention Status: Acute (3) UTI (urinary tract infection) Status: Acute Past History CVA/TIA/stroke, high cholesterol Past Surgical History: cholecystectomy Family History Patient reports no known family medical history. Unknown malignancy - father, . Social History Hx Tobacco Use In Past Year?: Yes Smoking: less than 1 pack/day Alcohol: daily (2-3 drinks per day) Housing status: lives alone Occupation status: retired Allergies Coded Allergies: No Known Allergies (Unverified , 02/26/17) Medications Home Medications: Home Meds and Scripts Medications Dose Route/Sig Max Daily Dose Days Date Category Dose Instructions Plavix (Clopidogrel Bisulfate) 75 Mg Tab 75 Mg PO QAM 02/26/17 Reported Lipitor (Atorvastatin Calcium) 40 Mg Tab 80 Mg PO DAILY 02/26/17 Reported 2 TABLET DOSE Aspirin Chewable (Aspirin) 81 Mg Chew 162 Mg PO QAM 02/26/17 Reported Lidocaine (Lidocaine HCl) 150 Appln/50 Gm Oint 1 Appln TD PRN 02/26/17 Reported NEEDED FOR CATHS Miralax (Polyethylene Glycol 3350) 1 Pow Pow 17 Gm PO DAILY PRN 02/26/17 Reported NEEDED FOR CONSTIPATION Milk Of Magnesia (Magnesium Hydroxide) 30 Ml Susp 30 Ml PO DAILY/PRN 02/26/17 Reported NEEDED FOR NO BOWEL MOVEMENT PAST ONE DAY. Docusate Sodium 100 Mg Cap 100 Mg PO BID PRN 02/26/17 Reported Bisacodyl 10 Mg Sup 10 Mg [place] DAILY/PRN 02/26/17 Reported NEEDED FOR NO BPOWEL MOVEMENT PAST 2 DAYS. Tylenol (Acetaminophen) 500 Mg Tab 500 Mg PO Q4H PRN 02/26/17 Reported Inpatient Medications: Current Inpatient Medications Medications (Trade) Dose Ordered Sig/Kayli Route Start Time Stop Time Status Last Admin Dose Admin Atorvastatin Calcium (Lipitor Tab) 80 mg DAILY PO 02/26/17 08:00 03/28/17 08:59 02/26/17 07:38 80 MG Bisacodyl (Dulcolax Supp) 10 mg DAILY PRN [place] 02/26/17 02:45 03/28/17 02:44 Docusate Sodium (coLACE CAP) 100 mg BID PRN PO 02/26/17 02:45 03/28/17 02:44 Lidocaine HCl (Xylocaine Jelly 2%) 1 ml PRN PRN EXT 02/26/17 02:45 03/28/17 02:44 Acetaminophen (Tylenol Tab) 650 mg Q4H PRN PO 02/26/17 02:45 03/28/17 02:44 Al Hydrox/Mg Hydrox/Simethicone (Maalox Max Susp) 15 ml Q4H PRN PO 02/26/17 02:45 03/28/17 02:44 Magnesium Hydroxide (Milk Of Magnesia Susp) 30 ml Q6H PRN PO 02/26/17 02:45 03/28/17 02:44 Polyethylene (Miralax Powder Packet) 17 gm DAILY PRN PO 02/26/17 02:45 03/28/17 02:44 Zolpidem Tartrate (Ambien Tab) 5 mg HSZ PRN PO 02/26/17 02:45 03/28/17 02:44 Ondansetron HCl (Zofran Inj) 4 mg Q6H PRN IV 02/26/17 02:45 03/28/17 02:44 Hydromorphone HCl (Dilaudid Inj) 0.5 mg Q3H PRN IV 02/26/17 02:45 03/12/17 02:44 Oxycodone/ Acetaminophen 1 tab 1 tab Q4H PRN PO 02/26/17 02:45 03/12/17 02:44 Sodium Chloride 1,000 ml @ 100 mls/hr Q10H IV 02/26/17 04:00 02/26/17 07:38 150 MLS/HR Ceftriaxone Sodium/Dextrose (Rocephin Inj/ Dextrose Add-[place] 50ML) 50 ml @ 100 mls/hr HS IV 02/26/17 22:00 03/07/17 21:59 Aspirin (Ecotrin Tab) 81 mg QAM PO 02/27/17 08:00 03/29/17 07:59 Aspirin (Ecotrin Tab) 81 mg 1100 ONCE PO 02/26/17 11:00 02/26/17 11:01 Review of Systems Review of Systems Constitutional: No chills, No fever Eyes: No eye pain Neurological: + dizzy, No seizures Gastrointestinal: No abdominal pain, No nausea, No vomiting Cardiovascular: No chest pain Respiratory: No shortness of breath Skin: No boils, No dry skin Musculoskeletal: No joint pain Blood / Lymphatic: + bleed easily Ears / Nose / Throat: + hearing loss Psychologic / Mental: No nervous Male : + blood in urine, + frequent urination, + see HPI Physical Exam Vital Signs: Vital Signs Past 12 Hours Date Time Temp Pulse Resp B/P Pulse Ox O2 Delivery O2 Flow Rate FiO2 02/26/17 09:38 36.4 90 18 175/94 97 Room Air 02/26/17 09:18 Room Air 02/26/17 04:33 36.4 98 18 118/75 98 Room Air 02/26/17 03:00 121/68 02/26/17 02:44 98 98 02/26/17 02:30 94/66 02/26/17 02:14 128 27 02/26/17 02:09 120 02/26/17 01:59 151/118 02/26/17 01:39 131 16 86 02/26/17 01:30 140/97 02/26/17 01:09 130 94 02/26/17 01:00 135/105 02/26/17 00:39 146 87 02/26/17 00:30 140 20 155/86 95 Room Air 02/26/17 00:30 155/86 02/26/17 00:21 166/108 02/26/17 00:09 126 97 02/25/17 23:40 95 Room Air 02/25/17 23:39 121 93 02/25/17 23:19 82/62 02/25/17 23:13 164/ 02/25/17 23:09 18 Physical Exam: General Appearance: no apparent distress, + thin ENT: normal ENT inspection Neck: no JVD Respiratory/Chest: no respiratory distress, no accessory muscle use Cardiovascular: no JVD Gastrointestinal: Abdomen: normal abdomen Bladder: normal bladder Renal: normal renal Liver: normal liver Spleen: normal spleen Genitourinary - Male: Penis: normal penis Urethral Meatus: pertinent finding (myers in place) Testes: normal testes Anus / Perineum: pertinent finding (anal stenosis) Prostate: size (>80 gm), rubbery, pertinent finding (no nodules, nontender) Extremities: non-tender Neurologic/Psychiatric: alert, + motor weakness (left), + pertinent finding ( some dysarthria) Skin: normal color Assessment & Plan Assessment & Plan Imaging: CT A/P 71 yo male with retention, gross hematuria. Seen his history and likelihood of noncompliance as an outpatient, will initiate hematuria workup currently. Will check a PSA (some elevation expected in current situation, more to r/o dramatically elevated values), CT scan abd/ pelvis hematuria protocol. Will type and screen seen the drop in Hb and recheck values in PM and AM. If his Hb continues to drop and hematuria continues consider OR tomorrow for cysto, clot evaluation, fulguration, possible TURBT (a finding of bladder tumor or prostate enlargement would not be overly suprising in this patient's scenario). Can take PO for now, NPO after midnight. Consider holding anticoagulation if hematuria persists or there is a transfusion requirement. Seen prostate size will start finasteride. Nonindurated, more suspicious for BPH than locally advanced CAP. Oxybutynin PRN bladder spasms. Care is discussed with patient who vocalizes understanding of the treatment plan.
--- NOTE | 2017-02-26 12:09 | DIAGNOSTIC IMAGING REPORT ---
CHEST 2 VIEWS ROUTINE CLINICAL HISTORY: Gross hematuria, preoperative evaluation. COMPARISON STUDY: No previous studies for comparison. FINDINGS: There is mild lung hyperexpansion. There is no pneumothorax. There may be trace bilateral pleural effusions. Pulmonary vascularity is normal. Cardiac size is normal. Skin folds project over the right hemithorax. Hazy left midlung opacity is present. IMPRESSION: 1. Hazy left midlung opacity. This is probably artifactual, related to overlying soft tissues. Pneumonia could appear similar. Follow-up PA and lateral chest radiographs in 2 weeks are recommended. 2. No evidence of pulmonary edema. 3. Possible trace bilateral pleural effusions. Electronically signed by: Ronald Phoenix M.D. 02/26/2017 12:08 PM Dictated Date/Time: 02/26/2017 12:03 PM
[2017-02-26] MEDS ORDERED: FINASTERIDE 5 MG TAB PO ONE (12:15)
--- NOTE | 2017-02-26 12:41 | DIAGNOSTIC IMAGING REPORT ---
CT OF THE ABDOMEN AND PELVIS WITH AND WITHOUT CONTRAST HEMATURIA PROTOCOL CLINICAL HISTORY: Gross hematuria COMPARISON STUDY: None. TECHNIQUE: Unenhanced and split bolus phase imaging of the abdomen and pelvis was performed. Injection of 118 cc Optiray [address] DOSE: 1154.47 mGy.cm FINDINGS: Visualized portions of the lower chest demonstrate trace bilateral effusions with associated atelectasis. There is no biliary ductal dilatation status post cholecystectomy. The liver, adrenal glands and pancreas are unremarkable. No renal, ureteral or bladder calculi are present. There are no renal masses. There are no upper tract urothelial lesions. There is mild dilatation of the distal ureters. There is no hydronephrosis. A Hooper balloon is present within the bladder. There is extensive nonenhancing hyperdense material which fills the bladder suggestive of clot. Sensitivity for detection of bladder lesions is significantly diminished on this exam given the large blood clot within the bladder. There is trace gas within the bladder. The bladder is moderately distended. Prostate is moderately enlarged, measuring 5.4 cm in transverse dimension. There is sigmoid diverticulosis without evidence for acute diverticulitis. Extensive atherosclerotic plaque is noted. There is no aneurysmal dilatation of the aorta. IMPRESSION: 1. Extensive blood clot within the bladder. Moderate bladder distention. Hooper catheter in place. 2. Moderate prostatic enlargement. 3. No urinary calculi or hydronephrosis. Mild dilatation of the distal ureters. No upper tract urothelial lesions. Significantly decreased sensitivity for detection of bladder lesions given blood clot filling the bladder. Electronically signed by: Ronald Phoenix M.D. 02/26/2017 12:40 PM Dictated Date/Time: 02/26/2017 12:28 PM
[2017-02-26] MEDS: OXYBUTYNIN CHLORIDE 5 MG TAB PO PRN (12:43)
[2017-02-26] MEDS: HYDROmorphone INJ 0.5 MG/0.5 ML SYR IV PRN ×2 (12:51→18:03)
[2017-02-26 13:39] LABS: HEMATOCRIT 24.8 % (42-52); MEAN CELL VOLUME 88.3 fL (80-100); MEAN CORPUSCULAR HEMOGLOBIN 29.5 pg (25-34); MEAN CORPUSCULAR HGB CONC 33.5 g/dl (32-36); MEAN PLATELET VOLUME 8.4 fL (7.4-10.4); PLATELET COUNT 277 K/uL (130-400); RED BLOOD COUNT 2.81 M/uL (4.7-6.1); WHITE BLOOD COUNT 11.31 K/uL (4.8-10.8)
--- NOTE | 2017-02-26 19:10 | Anesthesiology Progress Note ---
Anesthesia Progress Note Date of Service Feb 26, 2017. Progress Notes This is a 71 y/o w male presenting for a cystoscopy,clot evacuation,fulguration and possible TURBT.PMHx is sig. for a recent ischemic (non-hemorrhagic) right sided CVA on January. Pt has residual Left sided weakness.Pt had been started on aspirin and clopidogrel post CVA and this may have contributed to the presenting problem.This has since been stopped.Other medical problems are: COPD(emphysema),hyperlipidemia,HTN,anemia and atherosclerotic CV disease.Discussed anesthesia w/pt,risks vs benefits,all questions answered. Informed consent obtained.I have discussed w/pt the increased risk of another CVA because of the temporal relationship of his recent cva being so close. He understands and wishes to proceed.
[2017-02-26 23:25] LABS: HEMATOCRIT 29.4 % (42-52)
[2017-02-27] VITALS (12 sets, daily range): BP systolic 113–128; BP diastolic 66–84; PULSE 68–101; TEMP 36.3–37.4; O2SAT 91–98
[2017-02-27] MEDS ORDERED: CIPROFLOXACIN / D5W 400 MG IV SCH (06:00)
[2017-02-27 06:59] LABS: HEMATOCRIT 28.8 % (42-52); MEAN CORPUSCULAR HEMOGLOBIN 29.6 pg (25-34); MEAN PLATELET VOLUME 8.4 fL (7.4-10.4); PLATELET COUNT 258 K/uL (130-400); RED BLOOD COUNT 3.31 M/uL (4.7-6.1); WHITE BLOOD COUNT 10.46 K/uL (4.8-10.8)
--- NOTE | 2017-02-27 07:35 | Progress Note ---
Subjective Date of Service: February 27, 2017. Subjective Pt evaluation today including: conversation w/ patient, physical exam, chart review, lab review Voiding: myers catheter in place 71 year old male with gross hematuria. He continues to have mata colored urine with CBI. He was infused with 2 units of PRBC's yesterday. Hgb prior to infusion was 8.3- post was 9.8. Remains stable at 9.8 this morning. Metabolic panel still pending. Afebrile VSS. White count has normalized. OR this am. CXR- small bilateral effusions, no pulmonary edema. EKG- no worrisome findings Problem List Medical Problems: (1) Hematuria Status: Acute (2) Urinary retention Status: Acute (3) UTI (urinary tract infection) Status: Acute Review of Systems Constitutional: No chills, No fever Eyes: No worsening of vision ENT: + hearing loss (hard of hearing) Respiratory: No cough, No shortness of breath Cardiac: No chest pain Abdomen: No nausea, No pain Male : + see HPI Psychiatric: No depression symptoms Heme: + see HPI Skin: No rash Objective Vital Signs Date Time Temp Pulse Resp B/P Pulse Ox O2 Delivery O2 Flow Rate FiO2 02/27/17 00:00 98 Room Air 02/26/17 22:30 36.6 88 18 143/85 02/26/17 21:30 36.6 87 18 120/75 02/26/17 21:00 36.5 91 18 109/70 02/26/17 20:30 36.5 81 18 126/78 02/26/17 20:15 36.4 87 20 135/83 94 02/26/17 20:00 36.4 99 20 170/96 02/26/17 18:05 36.1 101 20 145/78 96 02/26/17 17:46 36.7 105 20 161/94 98 02/26/17 16:45 36.4 96 20 164/89 98 02/26/17 15:00 Room Air 02/26/17 14:59 36.4 98 18 81/41 98 Room Air 02/26/17 09:38 36.4 90 18 175/94 97 Room Air 02/26/17 09:18 Room Air Physical Exam General Appearance: WD/WN, no apparent distress Neck: no JVD Respiratory/Chest: lungs clear, normal breath sounds, no respiratory distress, no accessory muscle use Abdomen: soft Extremities: normal range of motion, no pedal edema, no calf tenderness Neurologic/Psychiatric: alert, normal mood/affect, oriented x 3 Skin: normal color, warm/dry Laboratory Results Last 24 Hours Test 02/26/17 10:27 02/26/17 13:14 02/26/17 23:15 02/27/17 06:30 Troponin I < 0.015 ng/ml White Blood Count 11.31 K/uL 10.46 K/uL Red Blood Count 2.81 M/uL 3.31 M/uL Hemoglobin 8.3 g/dL 9.8 g/dL 9.8 g/dL Hematocrit 24.8 % 29.4 % 28.8 % Mean Corpuscular Volume 88.3 fL 87.0 fL Mean Corpuscular Hemoglobin 29.5 pg 29.6 pg Mean Corpuscular Hemoglobin Concent 33.5 g/dl 34.0 g/dl RDW Standard Deviation 46.9 fL 48.1 fL RDW Coefficient of Variation 14.3 % 15.0 % Platelet Count 277 K/uL 258 K/uL Mean Platelet Volume 8.4 fL 8.4 fL Prostate Specific Antigen 30.300 ng/ml Assessment and Plan Gross Hematuria Pt continues on CBI with mata colored urine. Was transfused with 2 Units PRBCs. Has been NPO after midnight. Plan to take him to OR this am for cystoscopy, possible clot evacuation, fulgeration, and/or TURBT. Reviewed risks, benefits and answered all pt questions. Continued [facility] stay due to: multiple IV medications needed Discharge planning: rehab hospital
[2017-02-27 07:41] LABS: BUN/CREATININE RATIO 14.9 (10-20); CALCIUM 7.9 mg/dl (8.5-10.1); CREATININE 0.74 mg/dl (0.60-1.40); POTASSIUM 3.8 mmol/L (3.5-5.1)
[2017-02-27] MEDS ORDERED: ASPIRIN 81 MG ECTAB PO SCH (08:00)
[2017-02-27] MEDS ORDERED: NURSING VERBAL MED ORDER STA (08:14)
[2017-02-27] MEDS ORDERED: ALBUT/IPRATROP 3MG/0.5MG NEB 3 ML VIAL INH ONE (08:15)
[2017-02-27] MEDS ORDERED: EpHEDrine SULFATE INJ 50 MG/ML AMP IV PRN (08:15)
[2017-02-27] MEDS ORDERED: ATROPINE SULFATE 0.1 MG/ML 5ML SYR IV PRN (08:15)
[2017-02-27] MEDS ORDERED: FENTANYL CITRATE INJ 50 MCG/1 ML 2 ML VIAL IV PRN (08:15)
[2017-02-27] MEDS ORDERED: NEOSTIGMINE METHYLSULFATE 5 MG/5 ML SYR ONE (08:26)
[2017-02-27] MEDS ORDERED: LIDOCAINE HCL 2% 2 ML VIAL (20MG/ML) ONE ×2 (08:26→09:17)
[2017-02-27] MEDS ORDERED: GLYCOPYRROLATE INJ 0.2 MG/ML VIAL ONE (08:26)
[2017-02-27] MEDS ORDERED: ROCURONIUM BROMIDE 10 MG/ML 5 ML VIAL ONE (08:26)
[2017-02-27] MEDS ORDERED: PROPOFOL IV EMULSION 10 MG/ML 20 ML VIAL IV ONE ×2 (08:26→09:17)
[2017-02-27] MEDS ORDERED: FENTANYL CITRATE INJ 50 MCG/1 ML 2 ML VIAL ONE ×2 (08:27→09:33)
[2017-02-27] MEDS ORDERED: MIDAZOLAM HCL 1 MG/ML 2ML VIAL ONE (08:27)
[2017-02-27] MEDS ORDERED: BELLADONNA/OPIUM SUPP 60 MG SUPP PR ONE (09:15)
[2017-02-27] MEDS ORDERED: ONDANSETRON INJ 2 MG/ML 2 ML VIAL ONE (09:17)
[2017-02-27] MEDS ORDERED: PHENYLEPHRINE 100MCG/ML 5ML SYR ONE (09:17)
[2017-02-27] MEDS ORDERED: ETOMIDATE 2 MG/ML 20 ML VIAL IV ONE (09:17)
--- NOTE | 2017-02-27 09:23 | [facility] Post Operative Brief Note ---
Immediate Operative Summary Operative Date February 27, 2017. Pre-Operative Diagnosis Benign prostate hypertrophy, Gross hematuria, Clot retention Post-Operative Diagnosis Benign prostate hypertrophy, Gross hematuria, Clot retention No bladder tumor Procedure(s) Performed Cystoscopy Clot Evacuation, Fulguration, Bladder Biopsy Surgeon Dr. Grady Benitez Rippler Surgeon(s) none Estimated Blood Loss 20ml Findings Likely prostatic origin bleeding, no intravesical tumor, grade 2-3 trabeculation , borderline mucosa biopsies and prostatic bleeding fulgurated Specimens A) cold cup biopsies of bladder Drains 22 fr myers 10 cc H2O Anesthesia GALMA Complication(s) None Disposition Recovery Room / PACU
--- NOTE | 2017-02-27 10:06 | OPERATIVE REPORT ---
DATE OF OPERATION: 02/27/2017 PREOPERATIVE DIAGNOSES: Gross hematuria, clot retention and benign prostatic hypertrophy. POSTOPERATIVE DIAGNOSIS: Same likely prostate origin bleeding, no bladder tumor is present. PROCEDURE: Cystoscopy, clot evacuation, bladder biopsy, fulguration of bladder and prostate bleeders. SURGEON: Dr. Kendall Benitez. ROVING TECHNICIAN: None. ANESTHESIA: General anesthesia with laryngeal mask. COMPLICATIONS: None. FINDINGS: Mild borderline bladder mucosa biopsy, likely inflammatory in nature, prostate origin bleeding suspected and prostatic bleeders fulgurated. Grade II trabeculation with no intravesical tumor. No bladder perforations after completion of the case. Specimens SENT TO PATHOLOGY: Cold cup bladder biopsies. DRAINS LEFT IN PLACE: Include a 22-Andorran Hooper catheter to gravity drainage with 10 mL of sterile water in the balloon. ESTIMATED BLOOD LOSS: Minimal. BRIEF HISTORY: Mr. Zelaya is a 71-year-old male who I have seen in consultation yesterday for gross hematuria and clot retention. A fair amount of clot remained in the bladder on CT scan which demonstrates no upper tract lesions. Please see urology consultations and soap notes for further details. Seeing that the patient requires aspirin for recent cerebrovascular accident which has had to be stopped and that he has received 1 unit of blood as well as the fact that his gross hematuria continues, and I suspect there is a good chance he will be fairly noncompliant as an outpatient, seeing that his last physician visit was over 30 years ago. He is being brought to the operating room today to manage his difficulties. Informed consent reviewed on the chart preoperatively and Ciprofloxacin intravenously provided for antibiotic coverage. SCDs used for DVT prophylaxis. PROCEDURE: The patient was properly identified and brought to the operative suite after identification and appropriate consent on the chart, general anesthesia with laryngeal mask was initiated. The patient was prepped and draped in standard fashion for this procedure. inspector timers-out procedure was followed. A 24-Andorran resectoscope was passed into the bladder under direct visualization using a visual obturator. No urethral strictures were present and prostate was noted to have lateral lobe hypertrophy, minimal median bar with friable tissue in this area. A large amount of clot was encountered within the bladder and irrigated free using a Hao syringe. After this was completed, the resectoscope was removed and the cystoscope was introduced to allow for full evaluation of the bladder using 30 and 70 degree lenses. This demonstrated grade 2 trabeculation with erythematous patches in the bladder, not overly suspicious for tumor or CIS. No evidence of gross papillary tumor, calculi or other significant abnormalities for the sequelae of longstanding untreated BPH were identified. No diverticula were noted. Small erythematous areas of bladder mucosa were present throughout the bladder and at the bladder neck, likely felt to be inflammatory in origin. However, these were biopsied to ensure lack of malignancy and sent as cold cup bladder biopsies including bladder neck tissue. After this was complete, the cystoscope was removed and the resectoscope was replaced. Using a roller ball, areas of bleeding at the site of biopsy as well as prostatic bleeders were fulgurated, care being taken to avoid excess fulguration of the bladder neck and stricture in the future. Seeing that the patient will likely require antiplatelet therapy sooner rather than later, full resection of the prostate was avoided. The patient has been started on finasteride and Flomax will be added to his regimen. After this was complete, excellent hemostasis was appreciated and bladder was partially distended with irrigant. Resectoscope was removed and a 22 Andorran Hooper catheter was placed with return of clear irrigant. Ten mL of sterile water were placed in the balloon and catheter was placed to gravity drainage. Belladonna and opium suppository were provided to assist with postoperative analgesia. FOLLOWUP CARE: The patient will be readmitted to the floor for monitoring of his urine appearance. Continue management per primary service. Should his urine remain clear and his hemoglobin stabilized, it should be okay to restart the very least aspirin in the short term. Trial of void prior to discharge home. Would initiate finasteride for a congested and friable prostate with evidence of bleeding as well as Flomax to assist with bladder emptying. Would cover with antibiotics for 48 hours in the perioperative period. I attest to the content of the Intraoperative Record and any orders documented therein. Any exceptio ns are noted below.
--- NOTE | 2017-02-27 10:13 | Anesthesiology Progress Note ---
Anesthesia Post Op Note Date & Time February 27, 2017 at 10:13 Vital Signs Pain Intensity: 0 Vital Signs Past 12 Hours Date Time Temp Pulse Resp B/P Pulse Ox O2 Delivery O2 Flow Rate FiO2 02/27/17 10:05 36.6 02/27/17 10:02 62 16 02/27/17 10:02 63 16 98 02/27/17 10:00 119/66 02/27/17 09:57 16 02/27/17 09:57 76 16 02/27/17 09:55 116/63 02/27/17 09:52 13 02/27/17 09:52 77 13 02/27/17 09:50 129/68 02/27/17 09:47 65 16 02/27/17 09:47 67 16 100 02/27/17 09:46 70 18 02/27/17 09:46 73 18 98 02/27/17 09:45 127/90 02/27/17 09:41 65 16 02/27/17 09:41 66 16 100 02/27/17 09:40 124/73 02/27/17 09:36 78 14 100 02/27/17 09:36 75 14 02/27/17 09:35 133/72 02/27/17 09:31 62 19 100 02/27/17 09:31 61 19 02/27/17 09:30 105/64 02/27/17 09:28 134/72 02/27/17 09:26 13 02/27/17 09:26 54 13 112/62 02/27/17 09:26 37.1 54 14 134/72 100 Mask 10 02/27/17 08:00 Room Air 02/27/17 08:00 36.4 85 16 124/70 97 Room Air 02/27/17 00:00 98 Room Air 02/26/17 22:30 36.6 88 18 143/85 Notes Mental Status: alert / awake / arousable, participated in evaluation Pt Amnestic to Procedure: Yes Nausea / Vomiting: adequately controlled Pain: adequately controlled Airway Patency, RR, SpO2: stable & adequate BP & HR: stable & adequate Hydration State: stable & adequate Anesthetic Complications: no major complications apparent
[2017-02-27] MEDS: OXYBUTYNIN CHLORIDE 5 MG TAB PO PRN (11:02)
[2017-02-27] MEDS: FINASTERIDE 5 MG TAB PO SCH ×2 (11:03→20:32)
[2017-02-27] MEDS: ATORVASTATIN 40 MG TAB PO SCH (11:05)
--- NOTE | 2017-02-27 15:53 | Progress Note ---
Subjective Date of Service: February 27, 2017. Subjective pt was visited on return from cysto, prostate bleeding fulguraed, clots evacuated, pt with little discomfort Problem List Medical Problems: (1) Hematuria Status: Acute (2) Urinary retention Status: Acute (3) UTI (urinary tract infection) Status: Acute Review of Systems Constitutional: + fatigue, + weakness (previous stroke rehab ongoing), No chills, No fever Respiratory: No cough, No dyspnea on exertion, No shortness of breath Cardiac: No chest pain, No edema Abdomen: No diarrhea, No nausea, No pain, No vomiting Male : + hematuria, No dysuria, No urinary frequency Neurologic: + balance problems, + weakness, No memory loss Objective Vital Signs Date Time Temp Pulse Resp B/P Pulse Ox O2 Delivery O2 Flow Rate FiO2 02/27/17 08:00 Room Air 02/27/17 08:00 36.4 85 16 124/70 97 Room Air 02/27/17 00:00 98 Room Air 02/26/17 22:30 36.6 88 18 143/85 02/26/17 21:30 36.6 87 18 120/75 02/26/17 21:00 36.5 91 18 109/70 02/26/17 20:30 36.5 81 18 126/78 02/26/17 20:15 36.4 87 20 135/83 94 02/26/17 20:00 36.4 99 20 170/96 02/26/17 18:05 36.1 101 20 145/78 96 02/26/17 17:46 36.7 105 20 161/94 98 02/26/17 16:45 36.4 96 20 164/89 98 02/26/17 15:00 Room Air 02/26/17 14:59 36.4 98 18 81/41 98 Room Air Physical Exam General Appearance: WD/WN, + mild distress Neck: supple, no JVD Respiratory/Chest: chest non-tender, lungs clear, normal breath sounds Cardiovascular: regular rate, rhythm, no murmur Abdomen: normal bowel sounds, non tender, soft Extremities: no pedal edema, no calf tenderness Neurologic/Psychiatric: alert, + motor weakness (left sided leg>arm) Laboratory Results Last 24 Hours Test 02/26/17 10:27 02/26/17 13:14 02/26/17 23:15 02/27/17 06:30 Troponin I < 0.015 ng/ml White Blood Count 11.31 K/uL 10.46 K/uL Red Blood Count 2.81 M/uL 3.31 M/uL Hemoglobin 8.3 g/dL 9.8 g/dL 9.8 g/dL Hematocrit 24.8 % 29.4 % 28.8 % Mean Corpuscular Volume 88.3 fL 87.0 fL Mean Corpuscular Hemoglobin 29.5 pg 29.6 pg Mean Corpuscular Hemoglobin Concent 33.5 g/dl 34.0 g/dl RDW Standard Deviation 46.9 fL 48.1 fL RDW Coefficient of Variation 14.3 % 15.0 % Platelet Count 277 K/uL 258 K/uL Mean Platelet Volume 8.4 fL 8.4 fL Prostate Specific Antigen 30.300 ng/ml Sodium Level 140 mmol/L Potassium Level 3.8 mmol/L Chloride Level 107 mmol/L Carbon Dioxide Level 25 mmol/L Anion Gap 8.0 mmol/L Blood Urea Nitrogen 11 mg/dl Creatinine 0.74 mg/dl Est Creatinine Clear Calc Drug Dose 68.3 ml/min Estimated GFR () 106.8 Estimated GFR (Non- 92.2 BUN/Creatinine Ratio 14.9 Random Glucose 90 mg/dl Calcium Level 7.9 mg/dl Assessment and Plan 71 y/o male with recent CVA , 02/22 with L hemiparesis. At rehab had myers removed, then developed urinary retention due to bladder clot, now gross hematuria since catheter replaced, the catheter was then changed to a 3 way and CBI initiated. Urinary Retention and Gross Hematuria Hold Plavix restarted ASA as recent CVA - Continue CBI, Ceftriaxone, Urology consulted inpatient cystoscopy 02/27 without prostatic bleeding fulgurated Tachycardia ECG - evidence of diffuse mild ST elevation without CP/SOB likely early repolarization - Admitting doctor did discuss with Dr. Silva Leukocytosis minor cxr changes, but more likely urinary source Acute blood loss anemia from hematuria, with recent CVA support a more higher baseline hgb Transfuse PRBC Recent CVA with L Hemiparesis and Mild Word Finding Difficulty: Atorvastatin 80 mg daily DVT Prophylaxis: ALBARO/SCDs Code Status: FULL RESUSCITATION Disposition: - Return to [facility] for rehab 2/2 CVA - will need PCP established and patient in agreement - will place inpatient PT/OT evaluations - No PCP x 25 years - concern for underlying co-morbidities given cachectic appearance Continued [facility] stay due to: multiple IV medications needed Discharge planning: rehab hospital Continued [facility] stay due to: multiple IV medications needed Discharge planning: rehab hospital
[2017-02-27] MEDS ORDERED: HYDROmorphone INJ 1 MG/ML SYR IV PRN (17:45)
[2017-02-27] MEDS: CIPROFLOXACIN 500 MG TAB PO SCH (20:32)
[2017-02-27] MEDS ORDERED: TAMSULOSIN HCL 0.4 MG CAP PO SCH (22:00)
[2017-02-28] VITALS: O2SAT 91
[2017-02-28 06:32] LABS: HEMATOCRIT 28.4 % (42-52); MEAN CELL VOLUME 87.7 fL (80-100); MEAN CORPUSCULAR HGB CONC 33.1 g/dl (32-36); MEAN PLATELET VOLUME 8.2 fL (7.4-10.4); PLATELET COUNT 249 K/uL (130-400); RED BLOOD COUNT 3.24 M/uL (4.7-6.1); WHITE BLOOD COUNT 11.05 K/uL (4.8-10.8)
--- NOTE | 2017-02-28 06:34 | Clinical Documentation Query ---
CLINICAL DOCUMENTATION QUERY 71 year old male who presents to the Emergency Room with complaints of constant urinary retention and hematuria after Hooper removal at [facility]. Cysto was essentially negative for tumors and friable tissue was noted on prostate. In your clinical opinion is this patient being managed for: ( ) Injury of prostate due to traumatic Hooper removal or reinsertions treated with CBI and Cystoscopic evailuation. ( ) Other explanation of clinical findings (Please Explain) ( ) Unable to determine (Please Define) ( ) Need to Discuss ( XX ) Not Agree The medical record reflects the following clinical findings, treatment, and risk factors. Clinical Indicators: Bladder retention after Hooper removal with multiple Catheterization attempts. Gross hematuria noted. Anemia (Hgb 8.3, Hct 24.8). Treatment: CBI, 2units PRBC's, Cystoscopy, Risk Factors: BPH, multiple catheterization attemps. Please clarify and document your clinical opinion in the progress notes and discharge summary. Terms such as "probable", "suspected", "likely", "questionable", "possible", or "still to be ruled out" are acceptable. IF IN AGREEMENT, YOU MUST DOCUMENT ABOVE DIAGNOSTIC STATEMENT IN DAILY PROGRESS NOTES AND DISCHARGE SUMMARY. This document is not part of the patient's record. Thank You, Jethro Rice, RN [phone]
[2017-02-28 07:05] LABS: CALCIUM 7.5 mg/dl (8.5-10.1); CREATININE 0.86 mg/dl (0.60-1.40); POTASSIUM 3.7 mmol/L (3.5-5.1)
[2017-02-28 07:31] VITALS: BP 127/73; PULSE 89; TEMP 37.1; O2SAT 91
[2017-02-28] MEDS: CIPROFLOXACIN 500 MG TAB PO SCH (08:42)
[2017-02-28] MEDS: ATORVASTATIN 40 MG TAB PO SCH (08:42)
--- NOTE | 2017-02-28 08:54 | Progress Note ---
Subjective Date of Service: February 28, 2017. Subjective Voiding: myers catheter in place 71 year old male s/p cystoscopy, clot evacuation, bladder biopsy and fulguration of bladder and prostate. Pt is doing well post op. Tolerating diet. Became SOB while ambulating last evening requiring O2 via nc. Myers intact- draining clear yellow urine. No further hematuria. AFVSS. His hgb slightly dropped this am from 9.8 to 9.4. Pt reports he is feeling much better. Problem List Medical Problems: (1) Hematuria Status: Acute (2) Urinary retention Status: Acute (3) UTI (urinary tract infection) Status: Acute Review of Systems Constitutional: No chills, No fever ENT: + hearing loss (hard of hearing.) Respiratory: + see HPI, + shortness of breath, No cough, No dyspnea on exertion , No sputum Cardiac: No chest pain Abdomen: No nausea, No pain Male : + see HPI Psychiatric: No depression symptoms Heme: No abnormal bleeding/bruising Endo: No fatigue Objective Vital Signs Date Time Temp Pulse Resp B/P Pulse Ox O2 Delivery O2 Flow Rate FiO2 02/28/17 07:31 37.1 89 18 127/73 91 Nasal Cannula 1.0 02/28/17 00:00 91 Room Air 2.0 02/27/17 23:20 37.4 90 18 121/76 95 Nasal Cannula 1.0 02/27/17 20:00 91 Room Air 2.0 02/27/17 16:00 Room Air 2.0 02/27/17 15:47 36.4 91 20 117/67 91 02/27/17 13:28 36.5 83 16 128/72 02/27/17 12:23 36.4 101 16 123/84 92 Room Air 02/27/17 11:31 36.4 74 18 118/69 91 02/27/17 11:01 36.4 68 16 113/66 97 Room Air 02/27/17 10:36 97 Room Air 02/27/17 10:29 36.3 75 18 122/71 97 Room Air 02/27/17 10:15 102/57 02/27/17 10:13 63 16 02/27/17 10:13 66 16 97 02/27/17 10:10 105/60 02/27/17 10:08 64 14 02/27/17 10:08 64 14 96 02/27/17 10:05 121/69 02/27/17 10:05 36.6 02/27/17 10:03 58 16 98 02/27/17 10:03 60 16 02/27/17 10:02 62 16 02/27/17 10:02 63 16 98 02/27/17 10:00 119/66 02/27/17 09:57 16 02/27/17 09:57 76 16 02/27/17 09:55 116/63 02/27/17 09:52 13 02/27/17 09:52 77 13 02/27/17 09:50 129/68 02/27/17 09:47 65 16 02/27/17 09:47 67 16 100 02/27/17 09:46 70 18 02/27/17 09:46 73 18 98 02/27/17 09:45 127/90 02/27/17 09:41 65 16 02/27/17 09:41 66 16 100 02/27/17 09:40 124/73 02/27/17 09:36 78 14 100 02/27/17 09:36 75 14 02/27/17 09:35 133/72 02/27/17 09:31 62 19 100 02/27/17 09:31 61 19 02/27/17 09:30 105/64 02/27/17 09:28 134/72 02/27/17 09:26 13 02/27/17 09:26 54 13 112/62 02/27/17 09:26 37.1 54 14 134/72 100 Mask 10 Physical Exam General Appearance: WD/WN, no apparent distress ENT: hearing grossly normal (hard of hearing) Neck: no JVD Respiratory/Chest: no respiratory distress, no accessory muscle use Abdomen: soft Extremities: normal range of motion, non-tender, normal inspection, no pedal edema, no calf tenderness Neurologic/Psychiatric: alert, normal mood/affect, oriented x 3 Skin: normal color, warm/dry Laboratory Results Last 24 Hours Test 02/28/17 06:15 White Blood Count 11.05 K/uL Red Blood Count 3.24 M/uL Hemoglobin 9.4 g/dL Hematocrit 28.4 % Mean Corpuscular Volume 87.7 fL Mean Corpuscular Hemoglobin 29.0 pg Mean Corpuscular Hemoglobin Concent 33.1 g/dl RDW Standard Deviation 47.2 fL RDW Coefficient of Variation 14.8 % Platelet Count 249 K/uL Mean Platelet Volume 8.2 fL Sodium Level 138 mmol/L Potassium Level 3.7 mmol/L Chloride Level 106 mmol/L Carbon Dioxide Level 24 mmol/L Anion Gap 8.0 mmol/L Blood Urea Nitrogen 11 mg/dl Creatinine 0.86 mg/dl Est Creatinine Clear Calc Drug Dose 58.8 ml/min Estimated GFR () 100.4 Estimated GFR (Non- 86.6 BUN/Creatinine Ratio 13.0 Random Glucose 90 mg/dl Calcium Level 7.5 mg/dl Assessment and Plan Gross Hematuria S/P cysto, clot evacuation and fulguration of bladder and prostate bleeders. Would continue to monitor urine and hemoglobin. Urine is clear yellow, hemoglobin is somewhat stabilized- small drop but not significant for transfusion. Restart ASA if urine remains clear and hemoglobin is stable per primary service. Recommend trial of void prior to discharge. Per Dr. Benitez started Finasteride for a congested and friable prostate and Flomax to facilitate bladder emptying. Will continue to follow along with primary service. Thank you. Continued [facility] stay due to: multiple IV medications needed Discharge planning: rehab hospital
--- NOTE | 2017-02-28 10:05 | Anesthesiology Progress Note ---
Anesthesia Post Op Note Date & Time February 28, 2017 at 10:05 Vital Signs Pain Intensity: 0.0 Vital Signs Past 12 Hours Date Time Temp Pulse Resp B/P Pulse Ox O2 Delivery O2 Flow Rate FiO2 02/28/17 08:00 Room Air 02/28/17 07:31 37.1 89 18 127/73 91 Nasal Cannula 1.0 02/28/17 00:00 91 Room Air 2.0 02/27/17 23:20 37.4 90 18 121/76 95 Nasal Cannula 1.0 Notes Mental Status: alert / awake / arousable, participated in evaluation Pt Amnestic to Procedure: Yes Nausea / Vomiting: adequately controlled Pain: adequately controlled Airway Patency, RR, SpO2: stable & adequate BP & HR: stable & adequate Hydration State: stable & adequate Anesthetic Complications: no major complications apparent
[2017-02-28 10:55] VITALS: O2SAT 94
[2017-02-28] MEDS ORDERED: OXYC-88 PO (12:47)
[2017-02-28] MEDS ORDERED: FLM4 PO (12:47)
[2017-02-28] MEDS ORDERED: PRS5 PO (12:47)
[2017-02-28] MEDS ORDERED: DTR5 PO (12:47)
--- NOTE | 2017-02-28 12:51 | Discharge Instructions ---
Discharge Instructions Date of Service February 28, 2017. Admission Reason for Admission: Hematuria, Urinary Retention Discharge Discharge Diagnosis / Problem: gross hematuria from prostate Discharge Goals Goal(s): Diagnostic testing, Therapeutic intervention Activity Recommendations Activity Level: Assistance Required Therapies: Physical Therapy, Occupational Therapy . Additional Information Patient informed of condition: Yes Advance Directives: Yes DNR: No Level of Care: Acute Rehab Communicable Disease: No Prognosis: Stable Myers Catheter: Yes (myers remains until urology follow up) Instructions / Follow-Up Instructions / Follow-Up follow up with urology in about 2 weeks Current Hospital Diet Patient's current hospital diet: Regular Diet Discharge Diet Recommended Diet: Regular Diet Procedures Procedures Performed: Cystoscopy Clot Evacuation, Fulguration, Bladder Biopsy Pending Studies Studies pending at discharge: no List of pending studies: urine and blood cultures negative at time of discharge Laboratory Results 71 y/o male with recent CVA , 02/22 with L hemiparesis. At rehab had myers removed, then developed urinary retention due to bladder clot, now gross hematuria since catheter replaced, after fulguration of prostate via cystoscopy no further bleeding Urinary Retention and Gross Hematuria Hold Plavix restarted ASA as recent CVA Urology consulted inpatient cystoscopy 02/27 without prostatic bleeding fulgurated, myers remains with proscar and flomax, plans for follow up in office for myers re evaluation Tachycardia ECG - evidence of diffuse mild ST elevation without CP/SOB likely early repolarization - Admitting doctor did discuss with Dr. Silva, resolved with treatment of bleeding Acute blood loss anemia from hematuria, with recent CVA support a more higher baseline hgb Transfused 2 units PRBC Recent CVA with L Hemiparesis and Mild Word Finding Difficulty: Atorvastatin 80 mg daily, acute rehab referral DVT Prophylaxis: ALBARO/SCDs Code Status: FULL RESUSCITATION Medical Emergencies . Who to Call and When: Medical Emergencies: If at any time you feel your situation is an emergency, please call 911 immediately. . Non-Emergent Contact Non-Emergency issues call your: Urologist Call Non-Emergent contact if: temperature is above 101, your pain is unusual for you . . "Provider Documentation" section prepared by Deshawn Weinstein. . Core Measure Problem Core Measures: None
--- NOTE | 2017-02-28 12:52 | Discharge Summary ---
Discharge Summary Date of Service February 28, 2017. Discharge Summary Admission Date: Feb 26, 2017 at 02:39 Discharge Date: February 28, 2017 Discharge Disposition: Rehab Principal Diagnosis: gross hematuria, recent cva Procedures: prostate fulguration but cystoscopy Consultations: Dr Kendall Benitez Medication Reconciliation New Medications: Finasteride (Finasteride) 5 Mg Tab 5 MG PO QAM, #30 TAB Oxybutynin Chloride (Oxybutynin Chloride) 5 Mg Tab 5 MG PO TID PRN for Bladder pain, #30 TAB Oxycodone/Acetaminophen 10MG/325MG (Oxycodone/Acetaminophen 10MG/325MG) 1 Tab Tab 1 TAB PO Q4H PRN for Pain, #30 TAB Tamsulosin HCl (Tamsulosin HCl) 0.4 Mg Cap 0.4 MG PO HS, #30 CAP 6 Refills Continued Medications: Acetaminophen (Tylenol) 500 Mg Tab 500 MG PO Q4H PRN for MILD PAIN #1-3 OR TEMP >101F, TAB Aspirin (Aspirin Chewable) 81 Mg Chew 162 MG PO QAM Atorvastatin (Lipitor) 40 Mg Tab 80 MG PO DAILY, TAB 2 TABLET DOSE Bisacodyl (Bisacodyl) 10 Mg Sup 10 MG MO DAILY/PRN NEEDED FOR NO BPOWEL MOVEMENT PAST 2 DAYS. Docusate Sodium (Docusate Sodium) 100 Mg Cap 100 MG PO BID PRN for Constipation, CAP Magnesium Hydroxide (Milk Of Magnesia) 30 Ml Susp 30 ML PO DAILY/PRN, ML NEEDED FOR NO BOWEL MOVEMENT PAST ONE DAY. Polyethylene Glycol 3350 (Miralax) 1 Pow Pow 17 GM PO DAILY PRN for DAILY/PRN, #527 GM NEEDED FOR CONSTIPATION Discontinued Medications: Clopidogrel (Plavix) 75 Mg Tab 75 MG PO QAM, TAB Lidocaine HCl (Lidocaine) 150 Appln/50 Gm Oint 1 APPLN TD PRN NEEDED FOR CATHS Discharge Exam Review of Systems: Constitutional: No chills, No fever Respiratory: No cough, No sputum Cardiovascular: No chest pain, No orthopnea Abdomen: No nausea, No pain, No vomiting Genitourinary - Male: No dysuria, No hematuria Neurologic: + balance problems, + weakness, No memory loss, No paralysis Physical Exam: General Appearance: WD/WN, + mild distress Neck: supple, no JVD Respiratory/Chest: chest non-tender, lungs clear, normal breath sounds Cardiovascular: regular rate, rhythm, no murmur Abdomen / GI: normal bowel sounds, non tender, soft Neurologic/Psychiatric: alert, normal mood/affect, oriented x 3 Hospital Course 71 y/o male with recent CVA , 02/22 with L hemiparesis. At rehab had myers removed, then developed urinary retention due to bladder clot, now gross hematuria since catheter replaced, after fulguration of prostate via cystoscopy no further bleeding Urinary Retention and Gross Hematuria Hold Plavix restarted ASA as recent CVA Urology consulted inpatient cystoscopy 02/27 without prostatic bleeding fulgurated, myers remains with proscar and flomax, plans for follow up in office for myers re evaluation Tachycardia ECG - evidence of diffuse mild ST elevation without CP/SOB likely early repolarization - Admitting doctor did discuss with Dr. Silva, resolved with treatment of bleeding Acute blood loss anemia from hematuria, with recent CVA support a more higher baseline hgb Transfused 2 units PRBC Recent CVA with L Hemiparesis and Mild Word Finding Difficulty: Atorvastatin 80 mg daily, acute rehab referral DVT Prophylaxis: ALBARO/SCDs Code Status: FULL RESUSCITATION Total Time Spent: Greater than 30 minutes This includes examination of the patient, discharge planning, medication reconciliation, and communication with other providers. Discharge Instructions Please refer to the electronic Patient Visit Report (Discharge Instructions) for additional information.
[2017-02-28 15:30] VITALS: BP 115/69; PULSE 96; TEMP 36.8; O2SAT 98
[2017-02-28 15:43] VITALS: BP 115/69; PULSE 96; TEMP 36.8; O2SAT 98
== END 2017-02-28 16:00 | DRG 669 ==
LOC: ENRESERVTM → ENRESERVDT → C.EDB 22:43 → C.MS4W 02-26 02:39
PROVIDERS: ADMIT Internal Medicine; ATTEND Internal Medicine
PROC: 0TCB8ZZ Extirpation of Matter from Bladder, Via Natural or Artificial Opening Endoscopic (ICD-10-PCS; principal; 2017-02-27 13:45)
PROC: 0TBB8ZX Excision of Bladder, Via Natural or Artificial Opening Endoscopic, Diagnostic (ICD-10-PCS; principal; 2017-02-27 13:45)
DX: R33.9 Retention of urine, unspecified (principal); G81.94 Hemiplegia, unspecified affecting left nondominant side; N39.0 Urinary tract infection, site not specified; D62 Acute posthemorrhagic anemia; R31.0 Gross hematuria; F17.200 Nicotine dependence, unspecified, uncomplicated; E78.5 Hyperlipidemia, unspecified; D72.829 Elevated white blood cell count, unspecified; B96.20 Unspecified Escherichia coli [E. coli] as the cause of diseases classified elsewhere; R00.0 Tachycardia, unspecified; N40.0 Benign prostatic hyperplasia without lower urinary tract symptoms; Z90.49 Acquired absence of other specified parts of digestive tract; Z79.82 Long term (current) use of aspirin